=== PATIENT | female | born 1975 | race Caucasian/White ===

== ENCOUNTER 2020-10-06 13:43 | Emergency (ER) | payer OTHER ==
[~2020-10-06] VITALS: Ht 162.6 cm; Wt 47.4 kg
[2020-10-06 14:41] LABS: HCG UR SG 1.021 (1.003-1.030)
[2020-10-06 14:43] LABS: MICROSCOPIC INDICATED
[2020-10-06 15:33] VITALS: BP 112/80
--- NOTE | 2020-10-06 15:34 | NUR ---
PT REC'VD DISCHARGE INSTRUCTIONS AND EDUCATION. PT HAD NO FURTHER QUESTIONS. PT AMBULATED TO DC AREA, STEADY GAIT.
== END 2020-10-06 15:43 | disposition home or self-care (01) ==
LOC: ED 15:40
DX: R30.0 Dysuria (principal)
CPT/HCPCS: 81001; 81025; 87077; 87086; 87186; 99283